=== PATIENT | female | born 1995 ===

== ENCOUNTER 2022-12-19 15:44 | Outpatient (CLI) | payer BC, SELFPAY ==
--- NOTE | 2022-12-19 16:00 | CRLHL7_ITS ---
For Patients: As a result of the Cures Act, medical imaging exams and procedure reports are released immediately into your electronic medical record. You may view this report before your referring provider. If you have questions, please contact your health care provider. Indication: Evaluate for umbilical hernia Technique: Ultrasound abdomen limited Comparison: None Findings: Patient was scanned in the umbilical region. No evidence for hernia. No masses, adenopathy, free fluid or fluid collections. Impression: No definitive hernia demonstrated. Dictated by Amrit Aragon MD @ 12/19/2022 7:15:48 PM (Electronically Signed)
== END 2022-12-19 15:45 | disposition home or self-care (01) ==
LOC: US 15:45
PROVIDERS: PCP Emergency Medicine; Visit Provider Emergency Medicine
DX: K42.9 Umbilical hernia without obstruction or gangrene (principal)
CPT/HCPCS: 76705